=== PATIENT | male | born 1960 | race American Indian/Alaskan Native ===

== ENCOUNTER 2017-05-19 07:41 | Emergency (ER) | payer OTHER ==
[2017-05-19 07:51] VITALS: BP 164/88
[2017-05-19] MEDS ORDERED: TORADOL IM ONE (09:22)
--- NOTE | 2017-05-19 09:25 | Emergency Department Report ---
Upper Extremity - HPI Chief Complaint: Shoulder Injury Stated Complaint: RIGHT SHOULDER PAIN Upper Extremity: Right Shoulder Occurred When: 3 Days Mechanism: Unsure Severity: severe Symptoms: Yes Pain with Movement, Yes Limited Range of Movement, No Deformity, No Numbness, No Weakness, No Swelling, No Bruising/Ecchymosis, No Laceration or Abrasion Other History: 57-year-old -[place] male with a past medical history of arthritis and right hip pain comes in today for right shoulder pain for 4 days that started on morning. Patient reports that he woke up with pain on morning thought that it was the way he slept. As the day proceeded pain got worse. He reports that the pain is sharp and throbbing and he has difficulty getting comfortable. Patient denies any trauma. He says the pain feels like is down to the bone. Patient is right hand dominant walks with a cane for 3 years. ED Review of Systems ROS: Stated complaint: RIGHT SHOULDER PAIN Other details as noted in HPI Constitutional: denies: chills, fever Cardiovascular: denies: chest pain, palpitations Gastrointestinal: denies: abdominal pain, nausea, diarrhea Musculoskeletal: arthralgia (left shoulder) ED Past Medical Hx - Past Medical History Previous Medical History?: Yes Hx Arthritis: Yes Additional medical history: Right hip pain - Surgical History Past Surgical History?: No - Social History Smoking Status: Current Every Day Smoker Substance Use Type: Alcohol, Marijuana, Non Opiate Pain - Medications Home Medications: Home Medications Medication Instructions Recorded Confirmed Last Taken Type Naproxen 500 mg PO BID #20 tablet 05/19/17 Unknown Rx Upper Extremity Exam - Exam General: Vital signs noted. No distress. Alert and acting appropriately. Head and Torso: No HEENT Abnormality, No Neck Tenderness, No Chest/Lungs Abnormality, No Abdominal Tenderness, No Back Tenderness Shoulder Exam: Yes AC Joint Tenderness, No Shoulder Tenderness, No Clavicle Tenderness, No Normal Range of Motion in Shoulder (patient is not able to AB adduction, not able to extend,), No Shoulder Deformity Arm Exam: No Arm/Humerus Tenderness, No Arm Deformity Elbow: Yes Normal Range of Motion in Elbow, No Elbow Tenderness, No Elbow Deformity Forearm: Yes Pain with Pronation, No Forearm Tenderness, No Forearm Deformity, No Pain with Supination Wrist: No Wrist Tenderness, No Wrist Deformity Hand: No Hand Tenderness, No Hand Deformity CMS Exam: Yes Normal Distal Pulses, Yes Normal Capillary Refill, Yes Normal Distal Sensation, No Broken Skin ED Course Vital Signs 05/19/17 07:47 Temperature 97.4 F L Pulse Rate 76 Respiratory 18 Rate Blood Pressure 164/88 O2 Sat by Pulse 98 Oximetry ED Medical Decision Making - Radiology Data Radiology results: report reviewed, image reviewed Impression: Arthritic changes a.c. joint and glenohumeral joint with suspicion of calcific tendinitis rotator cuff. Transcribed By: PTP Dictated By: ANKITA CARRILLO MD Electronically Authenticated By: ANKITA CARRILLO MD Signed Date/Time: 05/19/17919 - Medical Decision Making Patient has been evaluated by this provider fast track. I discussed with patient that we will give him a Toradol injection of 30 mg. As well as 8 mg of decks. We will also do an x-ray 2 view to evaluate for possible frozen shoulder. Patient verbalized understanding. Patient is allergic to codeine so not able to give anything stronger. Critical care attestation.: If time is entered above; I have spent that time in minutes in the direct care of this critically ill patient, excluding procedure time. ED Disposition Clinical Impression: Calcific tendinitis of right shoulder Disposition: DC-01 TO HOME OR SELFCARE Is pt being admited?: No Does the pt Need Aspirin: No Condition: Stable Instructions: Calcific Tendinitis (ED) Additional Instructions: Please take pain medication as prescribed. It's very important for you to follow up with orthopedics to do physical therapy which will help improve movement and pain. Prescriptions: Naproxen 500 mg PO BID #20 tablet Referrals: [facility] [Primary Care Provider] - 3-5 Days [facility] - [facility]-5 Days
[2017-05-19] MEDS ORDERED: DECADRON IM ONE (09:30)
--- NOTE | 2017-05-19 09:37 | XRay Report ---
Right shoulder 3 views: History: RT changes a.c. joint and glenohumeral joint. Faint soft tissue calcification posterior to tuberosity. No evidence of acute fracture. Impression: Arthritic changes a.c. joint and glenohumeral joint with suspicion of calcific tendinitis rotator cuff.
== END 2017-05-19 10:35 | disposition home or self-care (01) ==
LOC: ED 07:41
DX: M75.31 Calcific tendinitis of right shoulder (principal); M19.90 Unspecified osteoarthritis, unspecified site; F17.200 Nicotine dependence, unspecified, uncomplicated; F12.10 Cannabis abuse, uncomplicated; Z88.5 Allergy status to narcotic agent
CPT/HCPCS: 73030; 96372; 99283; J1885